=== PATIENT | female | born 1980 | race Caucasian/White ===

== ENCOUNTER → 2023-09-09 12:53 | Outpatient (BNVA) | payer MEDICAID, SELFPAY | PROVIDERS: Visit Provider Obstetrics & Gynecology | DX: Z34.90 Encounter for supervision of normal pregnancy, unspecified, unspecified trimester (principal) | CPT/HCPCS: 80307; 82950; 84315; 85025; 86592; 86762; 86803; 86850; 86900; 87086; 87340; 87806 ==

== ENCOUNTER → 2023-09-21 14:19 | Outpatient (BNVA) | payer MEDICAID, SELFPAY | PROVIDERS: Visit Provider Obstetrics & Gynecology | DX: Z34.93 Encounter for supervision of normal pregnancy, unspecified, third trimester (principal); Z3A.30 30 weeks gestation of pregnancy | CPT/HCPCS: 76805 ==

== ENCOUNTER → 2023-10-01 07:45 | Outpatient (BNVA) | payer MEDICAID, SELFPAY | PROVIDERS: Visit Provider Obstetrics & Gynecology | DX: O09.33 Supervision of pregnancy with insufficient antenatal care, third trimester (principal); Z3A.00 Weeks of gestation of pregnancy not specified | CPT/HCPCS: 80053; 84315 ==

== ENCOUNTER → 2023-10-21 07:45 | Outpatient (BNVA) | payer MEDICAID, SELFPAY | PROVIDERS: Visit Provider Nurse Practitioner Women's Health | DX: Z34.90 Encounter for supervision of normal pregnancy, unspecified, unspecified trimester (principal); Z3A.00 Weeks of gestation of pregnancy not specified | CPT/HCPCS: 84315; 85025; 87491; 87591 ==

== ENCOUNTER → 2023-11-01 08:12 | Outpatient (BNVA) | payer MEDICAID, SELFPAY | PROVIDERS: Visit Provider Obstetrics & Gynecology | DX: O09.899 Supervision of other high risk pregnancies, unspecified trimester (principal); Z3A.00 Weeks of gestation of pregnancy not specified | CPT/HCPCS: 84315; 87081 ==

== ENCOUNTER → 2023-11-08 08:01 | Outpatient (BNVA) | payer MEDICAID, SELFPAY | PROVIDERS: Visit Provider Obstetrics & Gynecology | DX: O09.899 Supervision of other high risk pregnancies, unspecified trimester (principal); Z3A.00 Weeks of gestation of pregnancy not specified | CPT/HCPCS: 81000 ==

== ENCOUNTER → 2023-11-15 07:55 | Outpatient (BNVA) | payer MEDICAID, SELFPAY | PROVIDERS: Visit Provider Obstetrics & Gynecology | DX: O09.899 Supervision of other high risk pregnancies, unspecified trimester (principal); Z3A.00 Weeks of gestation of pregnancy not specified | CPT/HCPCS: 81000 ==

== ENCOUNTER → 2023-11-22 08:56 | Outpatient (BNVA) | payer MEDICAID, SELFPAY | PROVIDERS: Visit Provider Obstetrics & Gynecology | DX: O09.899 Supervision of other high risk pregnancies, unspecified trimester (principal); Z3A.00 Weeks of gestation of pregnancy not specified | CPT/HCPCS: 81000 ==

== ENCOUNTER 2023-11-24 11:34 | Inpatient (IN) | payer BC, MEDICAID, SELFPAY ==
[2023-11-24] VITALS (62 sets, daily range): BP systolic 98–137; BP diastolic 60–84; PULSE 65–109; RESP 16–17; TEMP 36.8; O2SAT 92–100; BMI 30.2
[2023-11-24] MEDS: lactated ringers 1,000 ML 999 ML IV (12:25)
[2023-11-24 12:31] LABS: Basophils # 0.1 10^3/uL (0.0-0.1); Basophils % 0.6 %; Eosinophils # 0.1 10^3/uL (0.0-0.8); Eosinophils % 0.9 %; Hematocrit 38.1 % (36-47); Lymphocytes # 1.8 10^3/uL (0.8-4.8); Lymphocytes % 14.9 %; Mean Corpuscular Hemoglobin 27.8 pg (27-33); Mean Corpuscular Volume 86.8 fl (85-98); Mean Platelet Volume 9.9 fL (7.4-10.4); Monocytes # 1.2 10^3/uL (0.2-0.9); Monocytes % 9.9 %; Neutrophils # 8.88 10^3/uL (1.8-7.7); Neutrophils % 72.6 %; Nucleated Red Blood Cells % 0 %; Platelet Count 190 10^3/cmm (157-399); Red Blood Count 4.39 10^6/uL (3.85-5.65); Red Cell Distribution Width 17.5 % (12.1-15.1); White Blood Count 12.22 10^3/uL (3.29-11.43)
--- NOTE | 2023-11-24 12:38 | PM.OPHPUD ---
Labor & Delivery H&P Update Date of Procedure: November 24, 2023 Date H&P Performed: 11/22/23 H&P update information: I have reviewed H&P completed within last 30 days, I have examined patient prior to procedure and No changes to prior documentation Admission Diagnosis: Planned procedure: Operation Date: 11/24/23 13:20 Proposed Procedures p Section Repeat(Not Applicable) - Ryan Taylor MD
--- NOTE | 2023-11-24 12:42 | P.ANESASSM_ITS ---
Pre-Anesthetic Assessment Height/Weight: Height 1.7 m Pulse BP 81 133/84 11/24/23 12:33 11/24/23 12:33 Preop Diagnosis: previous c section Operation Date: 11/24/23 13:20 Proposed Procedures p Section Repeat(Not Applicable) - Ryan Taylor MD Familial anesthetic complications: dad and brother slow to wake Was Beta Vandana taken within 24 hours: N/A Was Clonidine taken within 24 hours: N/A Last intake: 2300 Social No alcohol and No tobacco Exam alert, oriented x 3, clear to auscultation bilaterally and regular rate & rhythm Airway Submandibular: within normal limits Cervical ROM: within normal limits Mallampati: Class II Dentition: full Pulmonary None reported CV/HEM None reported None reported Hepatic None reported GI Gastroesophageal Reflux Disease Metabolic None reported Musc/skel None reported Neuropsych None reported Anesthetic Plan ASA status: 2 Anesthesia: Regional (specify below) (SAB) Risk of > 500 ml blood loss (7ml/kg in children): Yes, adequate IV access and fluids planned Medications/Allergies Home Medications Medication Instructions Recorded Confirmed Last Taken Type PNV 153-FA 400 mcg-om3 35 mg-dha 1 tab PO DAILY 09/09/23 11/24/23 Unknown History 25 mg-epa 5 mg-fish oil chew tablet ( Gummies) ferrous sulfate 325 mg (65 mg 325 mg PO DAILY #30 tabs 10/26/23 11/24/23 Unknown Rx iron) tablet Allergies Allergy/AdvReac Type Severity Reaction Status Date / Time No Known Allergies Allergy Verified 11/24/23 12:27 Current Medications Generic Name Dose Route Start Last Admin Trade Name Freq PRN Reason Stop Dose Admin Lactated Ringer's 1,000 mls @ 999 mls/hr 11/24/23 12:06 11/24/23 12:25 Lactated Ringers IV 999 mls/hr .Q1H1M PRN Administration Per L&D Rescitation Protocol [facility] Anesthesia Medical History No pertinent past medical history neghx:htn,dm,thyroid,dvt/pe PCP: none Surgical History History of section 2010-- breech presentation 2013--repeat H/O dilation and curettage after 1st delivery, retained placenta Family History Mother Thyroid disease Father Colon cancer Denies family history of Ovarian cancer Prostate cancer Diabetes Heart disease Hyperlipidemia Breast cancer Hypertension Uterine cancer Stroke Data Anesthesia 11/24/23 12:14 Short CBC 11/24/23 Range/Units 12:14 WBC 12.22 H (3.29-11.43) 10^3/uL Hgb 12.20 (11.27-16.99) g/dL Hct 38.1 (36-47) % MCV 86.8 (85-98) fl Plt Count 190 (157-399) 10^3/cmm Neut % (Auto) 72.6 % Neut # (Auto) 8.88 H (1.8-7.7) 10^3/uL Cardiac Studies: 2 No Data to Display
[2023-11-24] MEDS: ceFAZolin 2,000 MG in sodium chloride 0.9% (plus) 50 ML 100 MG IV (12:56)
[2023-11-24] MEDS: metoclopramide 5 mg/mL SDV 2 mL 10 MG IVP (12:56)
[2023-11-24] MEDS: citric acid-sodium citrate 30 mL UDC PO (12:56)
[2023-11-24] MEDS: famotidine 20 mg/2 mL INJ IVP (12:56)
[2023-11-24] MEDS: BUPivacaine liposome 266 MG, BUPivacaine 0.25% 30 ML in sodium chloride 0.9% 50 ML INFILTRATI (13:14)
--- NOTE | 2023-11-24 14:38 | P.OP_ITS ---
Operative Report Date of procedure: November 24, 2023 Pre-op diagnosis: Term Previous delivery Post-op diagnosis: same Procedure done: Repeat delivery Surgeon: Ryan Taylor MD Estimated blood loss (mL): 700 IV fluids (mL): 1,300 Urine output (mL): 200 Procedure: After assuring informed consent, the patient was taken to the operating room and anesthesia was initiated. She was placed in the dorsal supine position with a left lateral tilt. The abdomen was prepped and draped in the usual sterile manner. A time-out procedure was performed. Preop antibiotics was administered. A Pfannenstiel skin incision was made with the scalpel and carried through to the underlying layer of fascia with the Bovie. The fascia was nicked in the midline and the incision extended laterally with the Patel scissors. The super ior aspect of the fascial incision was then grasped with Negar clamps and elevated and the underlying rectus muscle dissected off bluntly. Attention was then turned to the inferior aspect of the incision which, in similar fashion, was grasped and tented up with Negar clamps and the rectus muscle dissected bluntly. The rectus muscles were then in the midline and the peritoneum identified, tented up and entered sharply with Metzenbaum scissors. The peritoneal incision was then extended superiorly and inferiorly with good visualization of the bladder. The Stephen O retractor was then inserted and the vesicouterine peritoneum identified, grasped with pickups and entered sharply with Metzenbaum scissors. This incision was then extended laterally and the bladder flap crea yoshi digitally. The lower uterine segment was noted to be very thin almost transparent. The uterus incised in a low transverse fashion with the scalpel. The uterine incision was then extended with the bandage scissors. The infant was then delivered in the cephalic presentation atraumatically at 1344. The nose and the mouth were suctioned with bulb and the cord clamped and cut. The cord was normal and had three vessels. Amniotic fluid was clear. She delivered a male infant with weight of 3020 g, Apgars 8/9. The placenta was then removed manually and the uterus exteriorized and cleared of all clots and debris. The uterine incision was repaired with 0 Vicryl in a running-locked fashion. A second layer of the same suture was used to obtain excellent hemostasis. The gutters were cleared of all clots. The uterus was then returned to the abdomen. The rectus muscles were approximated with 3-0 chromic gut. The ON-Q pain management system placed. The fascia was reapproximated with 0 Vicryl in an interrupted running fashion. The skin was closed with Insorb?s subcuticular absorbable pavan. The patient tolerated the procedure well. The sponge, lap and needle counts were correct times three.
[2023-11-24] MEDS: HYDROcodone-acetaminophen 5-325 mg Tablet PO ×2 (15:23→21:26)
[2023-11-24] MEDS: dextrose 5%-lactated ringers 1,000 ML 125 ML IV (15:23)
--- NOTE | 2023-11-24 15:45 | ANE.PACU2 ---
Inpatient post-anesthesia follow up: Airway intact: Yes Vital signs: Temperature Pulse Rate 72 Respiratory Rate Blood Pressure 111/71 Pulse Oximetry 100 Oxygen Delivery Me thod Room Air Oxygen Flow Rate Fraction of Inspir ed Oxygen Hydration adequate: Yes Nausea and vomiting: No Pain level: 1 Mental status: Baseline
[2023-11-24] MEDS: docusate sodium 100 mg Capsule PO (19:59)
[2023-11-24] MEDS: ketorolac 30 mg/mL INJ IVP (20:31)
[2023-11-25 00:10] VITALS: BP 120/76; PULSE 86; RESP 16; TEMP 36.9; O2SAT 97
[2023-11-25 02:53] LABS: Hematocrit 31.4 % (36-47); Mean Corpuscular HGB Conc 32.5 g/dL (30-55); Mean Corpuscular Hemoglobin 27.7 pg (27-33); Mean Corpuscular Volume 85.3 fl (85-98); Mean Platelet Volume 10.6 fL (7.4-10.4); Platelet Count 169 10^3/cmm (157-399); Red Blood Count 3.68 10^6/uL (3.85-5.65); Red Cell Distribution Width 17.3 % (12.1-15.1); White Blood Count 14.23 10^3/uL (3.29-11.43)
[2023-11-25] MEDS: ketorolac 30 mg/mL INJ IVP (03:22)
[2023-11-25] MEDS: HYDROcodone-acetaminophen 5-325 mg Tablet PO ×3 (04:33→15:35)
[2023-11-25 05:00] VITALS: BP 114/73; PULSE 86; RESP 16; TEMP 36.8; O2SAT 96
[2023-11-25] MEDS: ferrous sulfate EC 325 mg Tablet PO (10:41)
[2023-11-25] MEDS: docusate sodium 100 mg Capsule PO ×2 (10:41→20:58)
[2023-11-25] MEDS: PRENATAL VIT NO.130/IRON/FOLIC 1 EACH TABLET PO (10:41)
[2023-11-25] MEDS: simethicone 80 mg Chew PO ×2 (10:41→15:36)
[2023-11-25 10:45] VITALS: BP 105/59; PULSE 80
--- NOTE | 2023-11-25 12:24 | P.PN_ITS ---
Subjective 2 Subjective: Mrs. Navarro 43-year-old female status post repeat low-transverse delivery date 1. Vitals/I&O/Wt Last Vital Signs Temp 97.9 F 11/25/23 21:01 Pulse 82 11/26/23 08:02 Resp 16 11/25/23 05:00 BP 121/66 11/26/23 08:02 Pulse Ox 96 11/25/23 05:00 O2 Del Method Room Air 11/25/23 00:10 11/25/23 11/26/23 11/26/23 22:59 06:59 14:59 Intake Total 1000 / 2000 Output Total 200 / 200 Balance 1000 / 1400 -200 / -200 Weight last 48 hrs Weight 87.543 kg Physical Exam 2 Narrative: GA; alert and oriented x 3 HEENT: normal Breasts: engorged Nipples - skin intact Lungs; clear to auscultation Heart: regular rhythm, no murmurs. Abd: Appropriately tender. BS+. Uterine fundus below umbilicus. No Fundal Tenderness. minimal tenderness, incision clean and dry, no redness, pain or edema. Perineum: normal lochia. Extremities: no edema, no cyanosis, no tenderness. Urinary Catheter Management: Wang: Cath Placed During This Visit: yes, but has since been removed by the nurse Reason for Continuing Indwelling Catheter: Accurate Measurement of Urinary Output in Critically Ill Patients Urinary Catheter Date of Insertion: 11/24/23 Urinary Catheter Time of Insertion: 13:25 Date Urinary Catheter Removed: 11/25/23 Time Urinary Catheter Discontinued: 03:30 Data 11/25/23 02:00 A&P Assessment and plan (1) Status post delivery: Mrs. Navarro 43-year-old female is status post repeat delivery postoperative day 1. She is afebrile and hemodynamically stable. Tolerating diet well. Ambulating without difficulty. Plan Postop observation Encourage ambulation Attestations 2 Medical Necessity Statement*: In my professional opinion poor admitting diagnosis. Coding Level of Care Code Acute Code for Chg Fwd Diagnoses Status post delivery Z98.891
[2023-11-25] MEDS: ibuprofen 800 mg tablet PO (15:35)
[2023-11-25 16:17] VITALS: BP 118/64; PULSE 75
[2023-11-25 21:01] VITALS: BP 107/70; PULSE 96; TEMP 36.6
[2023-11-26] MEDS: ibuprofen 800 mg tablet PO ×2 (00:19→07:59)
[2023-11-26] MEDS: lanolin oint 7 gm 1 APPLIC TOPICAL (00:19)
[2023-11-26] MEDS: HYDROcodone-acetaminophen 5-325 mg Tablet PO ×3 (00:30→10:09)
[2023-11-26] MEDS: simethicone 80 mg Chew PO (05:48)
[2023-11-26 06:50] VITALS: BP 114/63; PULSE 88
[2023-11-26 08:02] VITALS: BP 121/66; PULSE 82
--- NOTE | 2023-11-26 08:27 | PM.OBGYDC ---
Discharge Providers IMMIGRATION INVESTIGATOR Date of Admission: 11/24/23 11:34 Date of Discharge: 11/26/23 Attending Provider at Admission: Ryan Taylor MD Attending Provider at Discharge: Ryan Taylor MD Primary IMMIGRATION INVESTIGATOR: Ryan Taylor MD Diagnoses at Discharge Discharge Diagnosis (1) Status post delivery: Status: Acute Reason for Visit Reason for Visit: Brief History: Ms. Navarro is a 43 year old patient with an LMP of 02/22/2023, CESARIO 11/29/2023 who has been receiving care from [facility]. Started with late care CC: Scheduled repeat delivery. HPI: Received appropriate care. Daily vitamins since start of care. labs have all been normal, including negative for HIV. She was found to negative for Group B Strep from screening at 36 weeks. She has gained approximately 11 lbs from the start of care at 28 weeks. She denies a history of HTN during . Glucose tolerance screening for gestational diabetes was negative. Hospital Course Hospital Course Ms. Navarro is a 43 year old patient with an LMP of 02/22/2023, CESARIO 11/29/2023, at 39 weeks was admitted for planned repeat delivery. delivery was performed without complications. She delivered a male weight 3020 g with an of 8/9. Postop observation was uneventful. She is afebrile hemodynamically stable postoperative day 2. Tolerating diet well. Ambulating without difficulty. She was counseled regarding pelvic rest for 6 weeks (no sex, no tampons, no vaginal douches). Return to the emergency room if any fever, increased bleeding or pain. Information Peripartum Data: Delivery Method: Physical Exam Narrative: GA; alert and oriented x 3 HEENT: normal Breasts: engorged Nipples - skin intact Lungs; clear to auscultation Heart: regular rhythm, no murmurs. Abd: Appropriately tender. BS+. Uterine fundus below umbilicus. No Fundal Tenderness, minimal tenderness, incision clean and dry, no redness, pain or edema. Perineum: normal lochia. Extremities: no edema, no cyanosis, no tenderness. Urinary Catheter Management: Wang: Cath Placed During This Visit: yes, but has since been removed by the nurse Reason for Continuing Indwelling Catheter: Accurate Measurement of Urinary Output in Critically Ill Patients Urinary Catheter Date of Insertion: 11/24/23 Urinary Catheter Time of Insertion: 13:25 Date Urinary Catheter Removed: 11/25/23 Time Urinary Catheter Discontinued: 03:30 History History History 4 Term 2 1 Miscarriages/Ectopic 0 Living Children 3 Discharge Data Studies Completed and Pending Laboratory Results WBC 14.23 10^3/uL (3.29-11.43) H 11/25/23 02:00 RBC 3.68 10^6/uL (3.85-5.65) L 11/25/23 02:00 Hgb 10.20 g/dL (11.27-16.99) L 11/25/23 02:00 Hct 31.4 % (36-47) L 11/25/23 02:00 MCV 85.3 fl (85-98) 11/25/23 02:00 MCH 27.7 pg (27-33) 11/25/23 02:00 MCHC 32.5 g/dL (30-55) 11/25/23 02:00 RDW 17.3 % (12.1-15.1) H 11/25/23 02:00 Plt Count 169 10^3/cmm (157-399) 11/25/23 02:00 MPV 10.6 fL (7.4-10.4) H 11/25/23 02:00 Neut % (Auto) 72.6 % 11/24/23 12:14 Lymph % (Auto) 14.9 % 11/24/23 12:14 Wake % (Auto) 9.9 % 11/24/23 12:14 Eos % (Auto) 0.9 % 11/24/23 12:14 Baso % (Auto) 0.6 % 11/24/23 12:14 Neut # (Auto) 8.88 10^3/uL (1.8-7.7) H 11/24/23 12:14 Lymph # (Auto) 1.8 10^3/uL (0.8-4.8) 11/24/23 12:14 Wake # (Auto) 1.2 10^3/uL (0.2-0.9) H 11/24/23 12:14 Eos # (Auto) 0.1 10^3/uL (0.0-0.8) 11/24/23 12:14 Baso # (Auto) 0.1 10^3/uL (0.0-0.1) 11/24/23 12:14 Nucleated RBC % (auto) 0 % 11/24/23 12:14 Nucleated RBCs # 0.0 /100WBC 11/24/23 12:14 Blood Type O Positive 11/24/23 12:14 Rho(D) Type Rh positive 11/24/23 12:14 Antibody Screen Negative 11/24/23 12:14 Vitals Last Vital Signs Temp 97.9 F 11/25/23 21:01 Pulse 82 11/26/23 08:02 Resp 16 11/25/23 05:00 BP 121/66 11/26/23 08:02 Pulse Ox 96 11/25/23 05:00 O2 Del Method Room Air 11/25/23 00:10 Results Labs OB ([facility]): Blood Type O Positive 11/24/23 Antibody Screen Negative 11/24/23 Hct 31.4 % (36-47) L 11/25/23 Hgb 10.20 g/dL (11.27-16.99) L 11/25/23 Rho(D) Type Rh positive 11/24/23 Plt Count 169 10^3/cmm (157-399) 11/25/23 Hep Bs Antigen Non-reactive (Nonreactive) 09/09/23 Hepatitis C Antibody Non-reactive (Nonreactive) 09/09/23 Rubella IgG Antibody 55.9 IU/mL (0.0-10.0) H 09/09/23 RPR Nonreactive (Nonreactive) 09/09/23 HIV 1&2 Ab & HIV 1 Ag Non-reactive (Non-Reactiv) 09/09/23 C.trachomatis RNA (TMA) Not detected (NOT DETECTED) 10/21/23 N.gonorrhoeae RNA (TMA) Not detected (NOT DETECTED) 10/21/23 T. vaginalis Amp RNA Not detected (NOT DETECTED) 10/21/23 Chlamydia/GC Comment See note 10/21/23 Gest Glucose Tolerance 111 mg/dL (70-139) 09/09/23 Urine Opiates Screen Negative ng/mL (Negative) 09/09/23 Ur Barbiturates Screen Negative ng/mL (Negative) 09/09/23 Ur Phencyclidine Scrn Negative ng/mL (Negative) 09/09/23 Ur Amphetamines Screen Negative ng/mL (Negative) 09/09/23 U Benzodiazepines Scrn Negative ng/mL (Negative) 09/09/23 Urine Cocaine Screen Negative ng/mL (Negative) 09/09/23 U Marijuana (THC) Screen Negative ng/mL (Negative) 09/09/23 Micro Urine Specimen 09/09/23 Discharge Plan Discharge Patient Disposition: Home Condition: Stable Prescriptions: New hydrocodone-acetaminophen 5-325 mg tablet 1 tab PO Q4H PRN (Reason: pain) Qty: 30 0RF acetaminophen 325 mg capsule 325 mg PO Q4H PRN (Reason: fever or postoperative pain) Qty: 60 0RF ferrous sulfate [Iron (ferrous sulfate)] 325 mg (65 mg iron) tablet 325 mg PO BID Qty: 60 0RF docusate sodium [Colace] 100 mg capsule 100 mg PO BID Qty: 60 0RF ibuprofen 800 mg tablet 800 mg PO TID PRN (Reason: pain) Qty: 60 0RF Continued Gummies 400 mcg-35 mg- 25 mg-5 mg tablet,chewable 1 tab PO DAILY ferrous sulfate 325 mg (65 mg iron) tablet 325 mg PO DAILY Qty: 30 2RF Discharge Orders: Discharge Order (Routine); Ordered 11/26/23 Ordered By: Ryan Taylor Referrals: Ryan Taylor MD [Physician] - 2 weeks Discharge Diet: Usual diet Discharge Activity: Limit activity as instructed Patient Instructions: Depression (DC), Opioid Safety (DC), Preeclampsia and Eclampsia After Delivery (GEN), Hemorrhage (DC), OB C, OB Discharge Report, OB Food/Drug Interaction Guide, Opioid Safety, OB Home Care, Abnormal Bleeding Activity Restrictions/Additional Instructions: 1. Please call [facility] on next working day to make your post-operative appointment in 2 weeks and at 6 weeks. 2. Please stay home until you come back to the clinic on first post-hospatilization check up. 3. Please follow instructions on your medications CAREFULLY. 4. If you have abdominal incision, do not cover it unless dressing is necessary because of drainage. OK to shower, but avoid bath. Leave steri-strips until they fall off. If they are still on one week after surgery, you may remove them. 5. If you had vaginal surgery or vaginal repair, Dr. Taylor may instruct you to take SITZ bath. 6. Yellow, blood tinged odorous vaginal discharge is usually normal after hysterectomy or vaginal surgeries. 7. No SEXUAL INTERCOURSE, tampons, or douches until you are completely released from the post-operative care. 8. Avoid constipation by eating right and maybe using some Metamucil or Milk of Magnesia. 9. All prescription refills are given during the working hours. Please do no wait till it runs out. Call the clinic at [phone] before your medication runs out. The clinic will get in touch with your doctor to prescribe medications if necessary. 10. Please remain within 40 mile radius from our hospital because emergencies do happen now and then during the post-operative period. 11. If you have stairs at home, take one step at a time slowly and minimize the number of trips. It helps to stay in one floor for the next few days. No lifting except what you can lift by one hand until you are released from the post-operative care. 12. Driving is discouraged until you are well healed. It may be 3-4 weeks before you feel strong enough to drive. You should be able to turn and look through the rear window without pain and you should be able to push the brake pedal very hard without pain before you drive. No fast rules, but SAFETY should be your primary concern. DO NOT drive if you are on sedating medications such as narcotics. 13. Call the clinic (during working hours) to make urgent appointment or go to the Emergency room, if any of the following occurs: i. Vaginal bleeding becomes heavy, more than a period. ii. Incision becomes red and sore, or drains pus. iii. Your TEMPERATURE is over 100.4F or you have chill. iv. IV site becomes red and swollen (a little ``knot?? is usually OK) v. Persistent nausea and vomiting vi. Persistent constipation or diarrhea vii. Rash or allergic reaction to medications. Discharge Attestations IMMIGRATION INVESTIGATOR Time Spent in Discharge Care*: greater than 30 min Coding Level of Care Code Acute Code for Chg Fwd Diagnoses Status post delivery Z98.891
[2023-11-26 09:41] VITALS: BP 112/70; PULSE 93; TEMP 36.7; O2SAT 97
[2023-11-26] MEDS: PRENATAL VIT NO.130/IRON/FOLIC 1 EACH TABLET PO (10:09)
[2023-11-26] MEDS: docusate sodium 100 mg Capsule PO (10:10)
[2023-11-26] MEDS: ferrous sulfate EC 325 mg Tablet PO (10:10)
[2023-11-26 11:50] VITALS: BP 120/72; PULSE 85; RESP 15; TEMP 36.6
== END 2023-11-26 11:55 | disposition home or self-care (01) | DRG 788 ==
PROVIDERS: Admitting Provider Obstetrics & Gynecology; Visit Provider Obstetrics & Gynecology
PROC: 10D00Z1 Extraction of Products of Conception, Low, Open Approach (ICD-10-PCS; CPT 59514; principal; 2023-11-24 13:00)
DX: O99.02 Anemia complicating childbirth (principal); O34.211 Maternal care for low transverse scar from previous cesarean delivery; N85.8 Other specified noninflammatory disorders of uterus; Z3A.39 39 weeks gestation of pregnancy; Z37.0 Single live birth
CPT/HCPCS: 36415; 51702; 59025; 59409; 85025; 85027; 86850; 86900; 96374; 96376; C9290; J0690; J1885; J2274; J2765; J3490; J7030; J7120; J7121

== ENCOUNTER 2024-07-14 13:39 | Outpatient (CLI) | payer BC, MEDICAID, SELFPAY ==
--- NOTE | 2024-07-14 13:41 | CTR_ITS ---
PROCEDURE INFORMATION: Exam: CT Abdomen And Pelvis Without Contrast Exam date and time: 07/14/2024 2:35 PM Age: 43 years old Clinical indication: Other: Pelvic and perineal pain; Prior surgery; Surgery date: 1-6 months; Surgery type: ; Additional info: R10.2 - pelvic and perineal pain TECHNIQUE: Imaging protocol: Computed tomography of the abdomen and pelvis without contrast. Radiation optimization: All CT scans at this facility use at least one of these dose optimization techniques: automated exposure control; mA and/or kV adjustment per patient size (includes targeted exams where dose is matched to clinical indication); or iterative reconstruction. COMPARISON: US OB >= 14 weeks fetus [id number] 09/21/2023 2:30 PM RADIATION DOSE METRICS: Total DLP (mGy-cm): 465.66 FINDINGS: Lungs: Lung bases are clear. No pleural effusion. Liver: Normal. No mass. Gallbladder and biliary ducts: Normal. No calcified stones. No ductal dilation. Pancreas: Normal. No ductal dilation. Spleen: Normal. No splenomegaly. Adrenal glands: Normal. No mass. Kidneys and ureters: Normal. No hydronephrosis. Stomach and bowel: Unremarkable. No obstruction. No mucosal thickening. Appendix: No evidence of appendicitis. Intraperitoneal space: Unremarkable. No free air. No significant fluid collection. Vasculature: Unremarkable. No abdominal aortic aneurysm. Lymph nodes: Unremarkable. No enlarged lymph nodes. Urinary bladder: Unremarkable as visualized. Reproductive: Unremarkable as visualized. Bones/joints: Unremarkable. No acute fracture. Soft tissues: There is a small umbilical hernia containing mesenteric fat. CT/CT abdomen pelvis wo con [id number] IMPRESSION: No acute findings.
== END 2024-07-14 13:40 | disposition home or self-care (01) ==
LOC: RAD 13:40
PROVIDERS: Visit Provider Obstetrics & Gynecology
DX: R10.2 Pelvic and perineal pain (principal)
CPT/HCPCS: 74176

== ENCOUNTER 2024-11-17 15:57 | Outpatient (CLI) | payer BC, MEDICAID, SELFPAY ==
--- NOTE | 2024-11-17 16:09 | MR_ITS ---
WS: [id number] MRI LUMBAR SPINE NONCONTRAST TECHNIQUE: Sagittal T1, T2 and STIR imaging. Axial T1 and T2 imaging. CLINICAL INFORMATION: VERTEBROGENIC LOW BACK PAIN COMPARISON: None. FINDINGS: Counting performed from the craniocervical junction. 11 thoracic vertebral bodies. 5 nonrib-bearing lumbar vertebral bodies. 5 nonrib-bearing lumbar vertebral bodies labeled L1-L5 for the purposes of this dictation. L1-L2: Normal. L2-L3: Shallow central protrusion with a small annular fissure. Narrowing of the LEFT subarticular recess. Mild facet arthropathy. Foramina are patent. L3-L4: Mild annular bulging. Narrowing LEFT subarticular recess. Mild LEFT foraminal narrowing. Mild facet arthropathy. L4-L5: Mild annular bulging. Slight effacement of the ventral thecal sac. Moderate facet arthropathy. Foramina are patent. L5-S1: Mild annular bulging. Moderate facet arthropathy. Spinal canal and foramina are patent. Visualized pelvic bony structures: Normal. Paravertebral soft tissues: Normal. Incidental Tarlov cyst in the sacrum. MR/MR lumbar spine wo con* [id number] IMPRESSION: 1. Counting performed from the craniocervical junction. 11 thoracic vertebr al bodies. 5 nonrib-bearing lumbar vertebral bodies. 5 nonrib-bearing lumbar ve rtebral bodies labeled L1-L5 for the purposes of this dictation. 2. Shallow central protrusion at L2-3 with a small annular tear and narrowing the LEFT subarticular recess. 3. Annular bulging L3-4 with slight impingement on the LEFT subarticular reces s. Mild LEFT foraminal narrowing. 4. Mild annular bulging L4-L5 and L5-S1 with slight effacement of the ventral thecal sac. 5. Moderate facet arthropathy L4-L5 and L5-S1.
== END 2024-11-17 15:58 | disposition home or self-care (01) ==
PROVIDERS: Visit Provider Anesthesiology Pain Medicine
DX: M54.51 Vertebrogenic low back pain (principal); M51.362 Other intervertebral disc degeneration, lumbar region with discogenic back pain and lower extremity pain; M48.061 Spinal stenosis, lumbar region without neurogenic claudication; M51.372 Other intervertebral disc degeneration, lumbosacral region with discogenic back pain and lower extremity pain; M47.896 Other spondylosis, lumbar region; M47.897 Other spondylosis, lumbosacral region; G96.191 Perineural cyst
CPT/HCPCS: 72148

== ENCOUNTER → 2025-01-18 13:24 | Outpatient (BNVA) | payer BC, MEDICAID, SELFPAY | PROVIDERS: Visit Provider Orthopaedic Surgery | DX: M54.9 Dorsalgia, unspecified (principal); M54.50 Low back pain, unspecified; G89.29 Other chronic pain | CPT/HCPCS: 72110 ==

== ENCOUNTER 2025-04-06 22:30 | Emergency (ER) | payer BC, MEDICAID, SELFPAY ==
[2025-04-06 22:35] VITALS: BP 147/74; PULSE 76; RESP 16; TEMP 36.6; O2SAT 100; BMI 26.6
--- OUTSIDE RECORDS SUMMARY | 2025-04-06 22:45 | XMS_ITS | Clinical Summary ---
Author Organization [facility] [place] Address [address] [place] [address] Phone Care Team Providers Care Sales Development Manager Name Role Phone Amada Hoffmann Primary Care Provider [phone] Allergies Active Allergy Reactions Criticality Noted Date Comments Alpha-Gal (Qidixudry-Wnipc-6,3-Galactose) Hives High 10/13/2024 Medications polyethylene glycol 3350 (MIRALAX) 17 gram/dose PowderIndication s:Other constipation Take 1 Scoop (17 Grams) by mouth daily. Dissolve in 8 ounces of fluid and drink entire liquid 527 Gram 3 09/03/19 25 Active EPINEPHrine (EPIPEN) 0.3 mg/0.3 mL Auto-InjectorInd ications:Allergy to galactose-alpha- 1,3-galactose Inject 0.3 mL (0.3 mg) by intramuscular injection 1 time daily as needed for Anaphylaxis. 2 Each 3 09/05/19 25 Active ibuprofen (MOTRIN) 800 mg tabletIndication s:Chronic right-sided low back pain with right-sided sciatica Take 1 Tablet (800 mg) by mouth every 8 hours as needed for Pain. 90 Tablet 3 02/23/20 25 Active Active Problems No known active problems Encounters Date Type Department Care Team Description 03/06/2025 External Device Data [facility] Provider, Abstract 02/22/2025 Orders Only [facility] Medicine Mary D [address] [place] [id number] [place], LAND ACQUISITION SPECIALIST Chronic right-sided low back pain with right-sided sciatica (Primary Dx) 02/14/2025 External Device Data [facility] Provider, Abstract 02/14/2025 External Device Data [facility] Provider, Abstract 02/13/2025 External Device Data [facility] Provider, Abstract 02/07/2025 Telephone [facility] [address] [facility] [place] [address] Rosario Ascencioanda Yelena Referral 01/16/2025 External Device Data [facility] ABSTRA[facility] Provider, Abstract 01/16/2025 Telephone [facility] [address] [place] [address] Sayra Ascencio Referral; Patient Communication from Last 3 Months Family History Medical History Relation Name Comments Colon Cancer Father Relation Name Status Comments Father Social History Tobacco Use Types Packs/Day Years Used Date Smoking Tobacco: Never Smokeless Tobacco: Never Tobacco Cessation:Counseling Given: Not Answered Alcohol Use Standard Drinks/Week Comments Not Currently 0 (1 standard drink = 0.6 oz pur e alcohol) Feeling Safe Answer Date Recorded Are you in a relationship wi th someone who hurts you emotionally and/or physically? 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 Gender Identity Not on file Sexual Orientation Not on file Last Filed Vital Signs Vital Sign Reading Time Taken Comments Blood Pressure 102/64 10/13/2024 12:18 PM CDT Pulse 87 10/13/2024 12:18 PM CDT Temperature 36.7 C (98.1 F) 10/13/2024 12:18 PM CDT Respiratory Rate 18 10/13/2024 12:18 PM CDT Oxygen Saturation 96% 10/13/2024 12:18 PM CDT Inhaled Oxygen Concentration - - Weight 78.9 kg (174 lb) 12/15/2024 10:41 AM CDT Height 170.2 cm (5' 7 ) 12/15/2024 10:41 AM CDT Body Mass Index 27.25 12/15/2024 10:41 AM CDT Plan of Treatment Health Maintenance Due Date Last Done Comments Pre-Diabetes and Diabetes Screening 1982 DTAP/TDAP/TD VACCINES (1 - Tdap) 2001 HEPATITIS B VACCINES (1 of 3 - 19+ 3-dose series) 07/04 Preventative Visit-Managed Medicaid 2001 HPV/Cotest (21-29) 2003 HPV VACCINES (1 - 3-dose SCDM series) 2009 CERVICAL CANCER SCREENING 2012 HPV/Cotest (30-65) 2012 PAP SMEAR 2012 BREAST CANCER SCREENING 2022 INFLUENZA VACCINE (#1) 2025 12/15/2024 Insurance [place] [employer] [facility] MEDICAID Advance Directives For more information, please contact: [phone] * Full Code (Latest Code Status on File) Date Activated Date Inactivated Comments 10/13/2024 11:00 AM 10/13/2024 2:28 PM * Full Code Date Activated Date Inactivated Comments 10/13/2024 10:40 AM 10/13/2024 11:00 AM Care Teams Sales Development Manager Relationship Specialty Start Date End Date Amada Hoffmann DO [address] [place] [address] PCP - General Family Practice 08/11/24
--- NOTE | 2025-04-06 23:40 | W.ED.ALLEREA ---
HPI - Allergic Reaction General: Chief complaint: Allergic Reaction Stated complaint: Could be Allergic to Mangos, Has Alpha-Gal Time Seen by Provider: 04/06/25 23:11 History of Present Illness: HPI narrative: Patient is a 44-year-old female who presents to the ED with severe urticaria following possible food exposure. Patient reports consuming srini, which is not typical in her diet, and also has a known alpha-gal allergy. She developed extensive hives that she describes as 'the worst hives I've ever had.' Initially, she took 20mL of children's Benadryl (equivalent to 50mg) as her first-line treatment, but symptoms continued to worsen. Due to progressive symptoms, she administered an EpiPen at approximately 21:00 today. Patient reports feeling like she was 'on fire' and experienced throat tightness, though denies any prior history of breathing difficulties with allergic reactions. She also reported feeling shaky and extremely cold. Symptoms began to improve while in the waiting room. Patient provided photos showing extensive coalescing urticaria on her abdomen, wrists, and thigh areas. She reports being able to tolerate citrus fruits like oranges and jesse without issue. Related Data Home Medications ?Medication ?Instructions ?Recorded ?Confirmed ibuprofen 800 mg tablet 800 mg PO TID 06/16/24 01/18/25 Previous Rx's ?Medication ?Instructions ?Recorded cetirizine 10 mg tablet 10 mg PO DAILY PRN allergy 04/06/25 symptoms #30 tabs methylprednisolone 4 mg tablets in See Rx Instructions PO .COMPLEX 04/06/25 a dose pack (Medrol (Leno)) #21 ea Allergies Allergy/AdvReac Type Severity Reaction Status Date / Time Alpha-Gal Allergy Unknown Verified 04/06/25 22:39 (Qsjzafziv-Elail-7,3-Gala [facility] ED PFSH: Medical History No pertinent past medical history neghx:htn,dm,thyroid,dvt/pe PCP: none Surgical History History of section 2010-- breech presentation 2013--repeat H/O dilation and curettage after 1st delivery, retained placenta Family History Mother Thyroid disease Father Colon cancer Denies family history of Ovarian cancer Prostate cancer Diabetes Heart disease Hyperlipidemia Breast cancer Hypertension Uterine cancer Stroke Social History Smoking and tobacco/nicotine status: never used tobacco/nicotine Physical Exam Const: COMMON NORMALS: no acute distress GENERAL APPEARANCE: cooperative; not ill appearing and not frail appearing HENMT: COMMON NORMALS: normocephalic, atraumatic and Normal external nose present HEAD & SCALP: normocephalic and atraumatic FACE & SINUS: normal facial exam and face symmetric NOSE: Normal external nose present Eye: COMMON NORMALS: Equal, round and reactive pupils present and EOMs intact bilaterally PUPIL: Yes Equal, round and reactive pupils present Neck/C-Spine: GENERAL: Yes trachea midline Chest: CHEST: Yes Symmetrical chest wall rise Resp: COMMON NORMALS: normal respiratory effort, No retractions, No use of accessory muscles and clear to auscultation bilaterally AUSCULTATION: clear to auscultation bilaterally Cardio: COMMON NORMALS: regular rate and regular rhythm RATE: regular rate RHYTHM: regular rhythm GI: COMMON NORMALS: Normal to inspection, nondistended, normoactive bowel sounds present Extremity: COMMON NORMALS: no pedal edema Neuro: AMAURY COMA SCALE: document GCS findings Amaury coma scale eye opening: Spontaneous [place] coma scale verbal response: Orientated Amaury coma scale motor response: Obey commands [place] coma scale total score: 15 SENSORY EXAM: Yes extremities (intact) Psych: COMMON NORMALS: speech normal SPEECH: Yes normal speech Skin: NARRATIVE SKIN EXAM: Exam reveals urticaria on bilateral forearms. None around the neck or face. These have faded compared to her pictures from prior to administration of EpiPen. Course Vital Signs: Vital signs: Vital Signs Temperature 97.9 F 04/06/25 22:35 Pulse Rate 74 04/07/25 01:14 Respiratory Rate 16 04/06/25 22:35 Blood Pressure 111/80 04/07/25 01:14 Pulse Oximetry 96 04/07/25 01:14 Oxygen Delivery Me thod Room Air 04/06/25 22:35 MDM - Allergic Reaction Medical Decision Making Urticaria are improving. She is given IV Benadryl and IV Solu-Medrol. She will be placed on tapering dose of steroids, as an outpatient. Cetirizine. To return for any worsening symptoms. Lab Data 04/06/25 00:05 04/06/25 00:05 Laboratory Results Sodium 141 mmol/L (136-145) 04/06/25 00:05 Potassium 3.8 mmol/L (3.5-5.1) 04/06/25 00:05 Chloride 106 mmol/L (98-107) 04/06/25 00:05 Carbon Dioxide 19 mmol/L (22-29) L 04/06/25 00:05 Anion Gap 19.8 (5-19) H 04/06/25 00:05 BUN 12 mg/dL (6-20) 04/06/25 00:05 Creatinine 0.6 mg/dL (0.5-0.9) 04/06/25 00:05 GFR Calculation 109.6 mL/min (90-130) 04/06/25 00:05 Glucose 94 mg/dL (65-115) 04/06/25 00:05 Calculated Osmolality 292 mOsm/kg (285-295) 04/06/25 00:05 Calcium 8.8 mg/dL (8.5-10.5) 04/06/25 00:05 No radiology studies performed this visit Discharge Plan Discharge Patient Disposition: Home Clinical Impression: Allergic reaction, Urticaria Condition: Stable Prescriptions: New methylprednisolone [Medrol (Leno)] 4 mg tablets,dose pack See Rx Instructions .ROUTE .COMPLEX Qty: 21 0RF Rx Instructions: orally per package directions cetirizine 10 mg tablet 10 mg PO DAILY PRN (Reason: allergy symptoms) Qty: 30 0RF No Action ibuprofen 800 mg tablet 800 mg PO TID Discharge Orders: Discharge ED (Routine); Ordered 04/07/25 Ordered By: Marcus Chavez Referrals: Tisha Rob, COIL TIER [Primary Care Provider, Nurse Practitioner] - 1-3 days Patient Instructions: Urticaria (ED), Allergies (ED), Opioid Safety, Pain Management, Patient Portal & Ember Instructions Activity Restrictions/Additional Instructions: Take the cetirizine for the next 3 days. If itch persists, you may take a dose of Benadryl on top of this. Steroid medication as directed. Return for any problems. Print Language: Mozambican Coding Level of Care Code ED Short Order Cook for Jannette Logan
[2025-04-06] MEDS: methylPREDNISolone sod succ 125 mg/2 mL INJ 80 MG IVP (23:56)
[2025-04-06] MEDS: diphenhydrAMINE 50 mg/mL SDV 1mL IVP (23:56)
[2025-04-07 00:24] VITALS: BP 122/82; PULSE 86; O2SAT 96
[2025-04-07 00:37] LABS: Anion Gap 19.8 (5-19); Blood Urea Nitrogen 12 mg/dL (6-20); Calcium 8.8 mg/dL (8.5-10.5); Carbon Dioxide 19 mmol/L (22-29); Chloride 106 mmol/L (98-107); Creatinine Clr Calc Pharmacy 130.7432; Glucose 94 mg/dL (65-115); Osmolality Calculated 292 mOsm/kg (285-295); Potassium 3.8 mmol/L (3.5-5.1); Sodium 141 mmol/L (136-145)
[2025-04-07 01:14] VITALS: BP 111/80; PULSE 74; O2SAT 96
== END 2025-04-07 01:06 | disposition home or self-care (01) ==
PROVIDERS: Emergency Provider Emergency Medicine
DX: T78.40XA Allergy, unspecified, initial encounter (principal); L50.9 Urticaria, unspecified; X58.XXXA Exposure to other specified factors, initial encounter; Z91.014 Allergy to mammalian meats
CPT/HCPCS: 80048; 85025; 96374; 96375; 99284; J1200; J2919